=== PATIENT | female | born 1950 | race Hispanic/Latino ===

== ENCOUNTER 2023-11-21 11:25 | Emergency (ER) | payer MEDICARE, OTHER ==
[2023-11-21] MEDS ORDERED: diphenhydrAMINE 50 MG/ML VIAL ONE (12:23)
[2023-11-21] MEDS ORDERED: Metoclopramide HCl 10 MG (2 mL) VIAL ONE (12:23)
[2023-11-21 12:51] LABS: Hematocrit 41.8 % (34.9-44.5); Mean Corpuscular HGB CONC 33.5 g/dL (32.0-36.0); Mean Corpuscular Hemoglobin 29.5 pg (27.0-33.0); Mean Corpuscular Volume 88.2 fl (81.6-98.3); Mean Platelet Volume 12.2 fl (7.4-10.4); Platelet Count 160 10x3/uL (150-450); RBC Distribution Width 12.9 % (11.5-14.5); Red Blood Cell (RBC) Count 4.74 10x6/uL (3.90-5.03); White Blood Cell (WBC) Count 8.8 10x3/uL (3.5-10.5)
[2023-11-21 12:57] LABS: ALT (SGPT) 15 U/L (8-55); AST (SGOT) 20 U/L (5-34); Albumin 4.4 g/dL (3.4-4.8); Alkaline Phosphatase 71 U/L (40-110); Anion Gap 14 mmol/L (10-20); BUN (Urea Nitrogen) 16 mg/dL (9.8-20.1); Bilirubin, Total 0.5 mg/dL (0.2-1.2); Calc. Creatinine Clearance 0 mL/min (70-130); Calcium 9.5 mg/dL (7.8-10.44); Carbon Dioxide 22 mmol/L (23-31); Chloride 104 mmol/L (98-107); Estimated GFR 83; Globulin 3.3 g/dL (2.4-3.5); Glucose 103 mg/dL (83-110); Lipase 15 U/L (8-78); Potassium 3.3 mmol/L (3.5-5.1); Protein, Total 7.7 g/dL (5.8-8.1); Sodium 137 mmol/L (136-145)
[2023-11-21 13:30] LABS: MDiff Complete? YES; Platelet Adequacy Comment Appears Adequate; RBC Morph Comment Within Normal Limits
[2023-11-21 13:33] LABS: Lymphocytes 29 % (21-51); Monocytes 24 % (0-10); Neutrophil 47 % (42-75)
[2023-11-21] MEDS ORDERED: Potassium Chloride 20 MEQ TAB ONE (13:53)
[2023-11-21 14:21] LABS: Bilirubin Neg (Negative); Blood, Urine Negative (Negative); Clarity Clear (Clear); Glucose, Urine (Dipstick) Normal (Negative); Ketone, Urine Negative (Negative); Leukocyte Negative (Negative); Nitrite Negative (Negative); Protein, Urine (Dipstick) Negative (Neg-Trace); Specific Gravity, Urine 1.005 (1.005-1.030); Urobilinogen Normal mg/dL (Less than 2); pH, Urine 6.5 (5.0-9.0)
[2023-11-21 14:33] LABS: Bacteria/HPF None Seen HPF (None Seen); CAUTI Indications for Culture < 2yrs of age; RBC/HPF 0-3 HPF (0-3); Squamous Epithelial 0-3 HPF (0-3); WBC/HPF None Seen HPF (0-3)
[2023-11-21 14:35] LABS: Urine Culture Reflex Yes Yes
== END 2023-11-21 19:30 | disposition home or self-care (01) ==
LOC: CSHERS 11:25
DX: K57.90 Diverticulosis of intestine, part unspecified, without perforation or abscess without bleeding (principal); G43.909 Migraine, unspecified, not intractable, without status migrainosus; R10.32 Left lower quadrant pain; R19.7 Diarrhea, unspecified
CPT/HCPCS: 36416; 74177; 80053; 81001; 83690; 85025; 87086; 96374; 96375; J1200; J2765; Q9967

== ENCOUNTER 2025-09-04 13:00 | Outpatient (CLI) | payer MEDICARE, OTHER | END 2025-09-04 13:01 | disposition home or self-care (01) | LOC: CSHMAMMO 13:00 | PROVIDERS: ATTEND Nurse Practitioner Family | DX: Z08 Encounter for follow-up examination after completed treatment for malignant neoplasm (principal); Z85.3 Personal history of malignant neoplasm of breast | CPT/HCPCS: 77066; G0279 ==